=== PATIENT | female | born 1990 | race Two or more races ===

== ENCOUNTER 2025-03-25 09:33 | Inpatient (IN) | payer OTHER ==
[~2025-03-25] VITALS: Ht 170.2 cm; Wt 93.4 kg
[2025-03-25] MEDS ORDERED: METHOTREXATE2.5 MG PO (10:25)
[2025-03-25] MEDS ORDERED: MILLIPRED5 MG PO (10:26)
[2025-03-25] MEDS ORDERED: FOLIC ACID20 MG PO (10:26)
[2025-03-25 11:55] LABS: RH POSITIVE
[2025-04-01] MEDS ORDERED: VISTASEAL DUAL APPICATOR 1 EACH APPL TOP ONE (13:15)
[2025-04-01] MEDS ORDERED: METRONIDAZOLE/SODIUM CHLORIDE 500 MG/100 ML PIGGYBACK IV ONE (13:15)
[2025-04-01] MEDS ORDERED: CEFTRIAXONE SODIUM 2,000 MG VIAL IJ ONE (13:15)
[2025-04-01] MEDS ORDERED: POVIDONE-IODINE 118 ML BOTT TOP ONE (13:15)
[2025-04-01] MEDS ORDERED: THROMBIN,HU/FIBRINOGEN/CALCIUM 10 ML SYRINGE TOP ONE (13:15)
[2025-04-01] MEDS ORDERED: MORPHINE SULFATE 4 MG/ML VIAL IV ONE ×2 (15:15→16:30)
[2025-04-01] MEDS ORDERED: SUGAMMADEX SODIUM 200 MG/2 ML VIAL IV ONE (15:45)
[2025-04-01] MEDS ORDERED: CELECOXIB 200 MG CAPSULE PO STA (16:13)
[2025-04-01] MEDS ORDERED: RINGERS SOLUTION,LACTATED 1,000 ML IV SCH (17:00)
[2025-04-01] MEDS ORDERED: GABAPENTIN 100 MG CAPSULE PO SCH (17:00)
[2025-04-01] MEDS ORDERED: ONDANSETRON HCL 2 MG/ML VIAL IV SCH (18:00)
[2025-04-01] MEDS ORDERED: ACETAMINOPHEN 325 MG TABLET PO SCH (18:00)
[2025-04-01] MEDS ORDERED: MORPHINE SULFATE 2 MG/ML CARTRIDGE IV ONE (22:30)
[2025-04-02 00:26] LABS: BASO % 0.2 % (0.1-1.2); EOS # 0.01 (0.04-0.54); EOS % 0.1 % (0.7-7.0); LYMPH # 1.13 (1.18-3.74); LYMPH % 9.7 % (19.3-53.1); MEAN PLATELET VOLUME 9.70 fl (9.4-12.4); MONO # 0.57 (0.24-0.82); MONO % 4.9 % (4.7-12.5); NEUT # 9.88 (1.56-6.13); NEUT % 84.8 % (34.0-71.1); RED CELL DISTRIBUTION WIDTH 12.8 % (11.6-14.4)
[2025-04-02 00:51] LABS: BUN CREA RATIO 8.0 (7.0-25.0); CREATININE SERUM 0.64 mg/dL (0.55-1.02); GFR 105.6; GLUCOSE FASTING 91.0 mg/dL (65-100); OSMOLALITY SERUM 276.0 MOSM/KG (275-295)
[2025-04-02 02:01] VITALS: BP 108/72; O2SAT 97
[2025-04-02 06:15] LABS: BASO % 0.3 % (0.1-1.2); EOS # 0.04 (0.04-0.54); EOS % 0.4 % (0.7-7.0); LYMPH # 1.51 (1.18-3.74); LYMPH % 13.4 % (19.3-53.1); MEAN PLATELET VOLUME 10.00 fl (9.4-12.4); MONO # 0.80 (0.24-0.82); MONO % 7.1 % (4.7-12.5); NEUT # 8.86 (1.56-6.13); NEUT % 78.4 % (34.0-71.1); RED CELL DISTRIBUTION WIDTH 13.1 % (11.6-14.4)
[2025-04-02 07:05] LABS: BUN CREA RATIO 9.0 (7.0-25.0); CREATININE SERUM 0.58 mg/dL (0.55-1.02); GFR 118.3; GLUCOSE FASTING 85.0 mg/dL (65-100); OSMOLALITY SERUM 278.0 MOSM/KG (275-295)
[2025-04-02 07:08] VITALS: BP 111/70; O2SAT 97
== END 2025-04-02 18:45 | DRG 743 ==
LOC: O/R 04-01 05:23 → SURH 04-01 07:00 → SURG 04-01 21:48
PROVIDERS: Surgery; Urology; ADMIT Obstetrics & Gynecology Gynecology; ATTEND Obstetrics & Gynecology Gynecology
PROC: 0DNP4ZZ Release Rectum, Percutaneous Endoscopic Approach (ICD-10-PCS; 2025-04-01)
PROC: 0DNN4ZZ Release Sigmoid Colon, Percutaneous Endoscopic Approach (ICD-10-PCS; 2025-04-01)
PROC: 0TN74ZZ Release Left Ureter, Percutaneous Endoscopic Approach (ICD-10-PCS; 2025-04-01)
PROC: 0DTJ4ZZ Resection of Appendix, Percutaneous Endoscopic Approach (ICD-10-PCS; 2025-04-01)
PROC: 0WBH4ZZ Excision of Retroperitoneum, Percutaneous Endoscopic Approach (ICD-10-PCS; 2025-04-01)
PROC: 0TB74ZZ Excision of Left Ureter, Percutaneous Endoscopic Approach (ICD-10-PCS; 2025-04-01)
PROC: 0T788DZ Dilation of Bilateral Ureters with Intraluminal Device, Via Natural or Artificial Opening Endoscopic (ICD-10-PCS; 2025-04-01)
PROC: 0UT94ZZ Resection of Uterus, Percutaneous Endoscopic Approach (ICD-10-PCS; principal; 2025-04-01 07:00)
PROC: 0UT74ZZ Resection of Bilateral Fallopian Tubes, Percutaneous Endoscopic Approach (ICD-10-PCS; 2025-04-01 07:00)
PROC: 0UB44ZZ Excision of Uterine Supporting Structure, Percutaneous Endoscopic Approach (ICD-10-PCS; 2025-04-01 07:00)
DX: N80.312 Deep endometriosis of the anterior cul-de-sac (principal); N80.123 Deep endometriosis of bilateral ovaries; N80.203 Endometriosis of bilateral fallopian tubes, unspecified depth; N80.3C1 Endometriosis of the right uterosacral ligament, unspecified depth; N80.A62 Endometriosis of left ureter, unspecified depth; N80.353 Endometriosis of bilateral pelvic sidewall, unspecified depth; N94.5 Secondary dysmenorrhea; E66.9 Obesity, unspecified; M06.9 Rheumatoid arthritis, unspecified; Z68.32 Body mass index [BMI] 32.0-32.9, adult

== ENCOUNTER 2025-04-07 15:20 | Inpatient (IN) | payer OTHER ==
[~2025-04-07] VITALS: Ht 167.6 cm; Wt 90.7 kg
[~2025-04-07 15:20] MED LIST: FOLIC ACID20 MG PO; METHOTREXATE2.5 MG PO; MILLIPRED5 MG PO
[2025-04-07 15:30] VITALS: O2SAT 99
[2025-04-07] MEDS ORDERED: 0.9 % SODIUM CHLORIDE 1,000 ML IV ONE (15:45)
[2025-04-07] MEDS ORDERED: FAMOtidine 10 MG/ML (4ML VIAL) IV ONE (15:45)
[2025-04-07] MEDS ORDERED: ONDANSETRON HCL 2 MG/ML VIAL IV ONE (15:45)
[2025-04-07 16:05] LABS: BASO % 0.4 % (0.1-1.2); EOS # 0.46 (0.04-0.54); EOS % 4.1 % (0.7-7.0); LYMPH # 2.32 (1.18-3.74); LYMPH % 20.6 % (19.3-53.1); MEAN PLATELET VOLUME 9.20 fl (9.4-12.4); MONO # 0.42 (0.24-0.82); MONO % 3.7 % (4.7-12.5); NEUT # 7.99 (1.56-6.13); NEUT % 70.8 % (34.0-71.1); RED CELL DISTRIBUTION WIDTH 12.6 % (11.6-14.4)
[2025-04-07 16:31] LABS: INR 1.07
[2025-04-07 16:36] LABS: ERYTHROCYTE SEDIMENTATION RATE 49 mm/hr (0-20)
[2025-04-07 16:45] LABS: ALT/SGPT 26.0 U/L (12-78); AST/SGOT 16.0 U/L (15-37); BILIRUBIN TOTAL 0.71 mg/dL (0.3-1.2); BUN CREA RATIO 18.0 (7.0-25.0); CREATININE SERUM 0.57 mg/dL (0.55-1.02); GFR 120.7; GLOBULINA 4.3 G/DL (2.4-3.5); GLUCOSE FASTING 77.0 mg/dL (65-100); OSMOLALITY SERUM 277.0 MOSM/KG (275-295)
[2025-04-07 16:51] LABS: COVID-19 AG NEGATIVE (NEGATIVE)
[2025-04-07 17:11] LABS: URINE APPEARANCE Cloudy; URINE BILIRRUBIN Negative (NEGATIVE); URINE BLOOD Moderate; URINE COLOR Yellow; URINE GLUCOSE Negative (NEGATIVE); URINE KETONE Negative (NEGATIVE); URINE LEUKOCYTE Large; URINE NITRATE Negative; URINE PROTEIN Negative (NEGATIVE); URINE UROBILINOGEN 0.2 E.U./dl
[2025-04-07 17:13] LABS: URINE BACTERIA 1676.3 uL (0.0-1933); URINE EPITHELIAL CELLS 171.2 uL (0.0-38.8); URINE RBC 19.0 uL (0.0-20.8); URINE WBC 394.9 uL (0.0-23.2)
[2025-04-07 17:24] LABS: URINE CAST 0.00 uL (0.0-1.40)
[2025-04-07 17:26] LABS: TYPE CELLS SQUAMOUS; URINE MUCUS SCANT
[2025-04-07] MEDS ORDERED: FAMOTIDINE/PF 20 MG in 0.9 % SODIUM CHLORIDE 8 ML IV PUSH SCH (19:40)
[2025-04-07] MEDS ORDERED: TRAMADOL HCL 50 MG TABLET PO PRN (19:45)
[2025-04-07] MEDS ORDERED: ONDANSETRON HCL 4 MG in 0.9 % SODIUM CHLORIDE 50 ML IV PRN (19:45)
[2025-04-07] MEDS ORDERED: ACETAMINOPHEN 500 MG GEL..CAP PO PRN (19:45)
[2025-04-07] MEDS ORDERED: 0.9 % SODIUM CHLORIDE 1,000 ML IV SCH (19:45)
[2025-04-07] MEDS ORDERED: CIPROFLOXACIN IN 5 % DEXTROSE 200 ML IV SCH (21:00)
[2025-04-07 22:11] VITALS: BP 98/62
[2025-04-08 00:10] VITALS: BP 96/62
[2025-04-08 08:00] VITALS: BP 90/60
[2025-04-08] MEDS ORDERED: ENOXAPARIN SODIUM 40 MG/0.4 ML SYRINGE SUBCUTANEO NR (11:00)
[2025-04-08] MEDS ORDERED: DEXTROSE 5 % AND 0.9 % NACL 1,000 ML IV SCH (11:00)
[2025-04-08 11:53] LABS: BASO % 0.5 % (0.1-1.2); EOS # 0.43 (0.04-0.54); EOS % 4.0 % (0.7-7.0); LYMPH # 1.38 (1.18-3.74); LYMPH % 12.9 % (19.3-53.1); MEAN PLATELET VOLUME 9.30 fl (9.4-12.4); MONO # 0.42 (0.24-0.82); MONO % 3.9 % (4.7-12.5); NEUT # 8.40 (1.56-6.13); NEUT % 78.4 % (34.0-71.1); RED CELL DISTRIBUTION WIDTH 12.4 % (11.6-14.4)
[2025-04-08 12:42] LABS: ALT/SGPT 21.0 U/L (12-78); AST/SGOT 15.0 U/L (15-37); BILIRUBIN TOTAL 0.77 mg/dL (0.3-1.2); BUN CREA RATIO 13.0 (7.0-25.0); CREATININE SERUM 0.67 mg/dL (0.55-1.02); GFR 100.16; GLOBULINA 3.8 G/DL (2.4-3.5); GLUCOSE FASTING 93.0 mg/dL (65-100); OSMOLALITY SERUM 278.0 MOSM/KG (275-295)
[2025-04-08] MEDS ORDERED: VANCOMYCIN HCL 125 MG CAPSULE PO SCH (13:01)
[2025-04-08 18:52] VITALS: BP 98/62
[2025-04-08] MEDS ORDERED: FAMOTIDINE/PF 20 MG in 0.9 % SODIUM CHLORIDE 8 ML IV PUSH SCH (21:00)
[2025-04-08 22:13] VITALS: BP 113/79
[2025-04-09] VITALS: BP 98/67
[2025-04-09 08:29] VITALS: BP 106/71
[2025-04-09] MEDS ORDERED: ENOXAPARIN SODIUM 40 MG/0.4 ML SYRINGE SUBCUTANEO SCH (09:00)
[2025-04-09 16:00] VITALS: BP 102/69
[2025-04-10 02:10] VITALS: BP 100/61
[2025-04-10] MEDS ORDERED: CIPROFLOXACIN HCL 500 MG TABLET PO NR (07:45)
[2025-04-10 08:35] VITALS: BP 106/67
== END 2025-04-10 10:35 | disposition home or self-care (01) | DRG 392 ==
LOC: ER 15:20 → OB/GYN 20:09
PROVIDERS: General Practice; Internal Medicine Infectious Disease; ADMIT Obstetrics & Gynecology Gynecology; ATTEND Obstetrics & Gynecology Gynecology
PROC: BW21YZZ Computerized Tomography (CT Scan) of Abdomen and Pelvis using Other Contrast (ICD-10-PCS; principal; 2025-04-07)
DX: K52.9 Noninfective gastroenteritis and colitis, unspecified (principal); R11.2 Nausea with vomiting, unspecified; N80.312 Deep endometriosis of the anterior cul-de-sac; N80.123 Deep endometriosis of bilateral ovaries; Z90.710 Acquired absence of both cervix and uterus